=== PATIENT | female | born 1995 | race African-American/Black ===

== ENCOUNTER 2018-07-27 15:48 | Emergency (ER) | payer SELFPAY ==
[2018-07-27] MEDS ORDERED: Bicillin LA 1.2 MILLION UNITS/2 ML SYRINGE ONE (17:06)
[2018-07-27] MEDS ORDERED: Dexamethasone 4 mg/ml Vial ONE (17:06)
== END 2018-07-27 19:26 | disposition home or self-care (01) ==
LOC: ERS 15:48
DX: J02.0 Streptococcal pharyngitis (principal)
CPT/HCPCS: 87430; 96372; J0561; J1100

== ENCOUNTER 2019-11-21 18:02 | Emergency (ER) | payer SELFPAY ==
[2019-11-21 20:30] LABS: #Eosinphils 0.1 thou/uL (0.0-0.7); #Lymphocytes 2.1 thou/uL (1.20-3.40); #Monocytes 0.4 thou/uL (0.11-0.59); #Neutrophils 4.2 thou/uL (1.40-6.50); %Basophils 0.3 % (0.0-1.0); %Eosinophils 1.7 % (0.0-10.0); %Lymphocytes 30.2 % (21.0-51.0); %Monocytes 5.4 % (0.0-10.0); %Neutrophils 62.5 % (42.0-75.0); Hemoglobin 13.1 g/dL (12.0-16.0); Mean Corpuscular HGB CONC 33.9 g/dL (32.0-36.0); Mean Corpuscular Hemoglobin 29.3 pg (27.0-31.0); Mean Corpuscular Volume 86.4 fL (78.0-98.0); Mean Platelet Volume 7.1 fL (7.4-10.4); Platelet Count 275 thou/uL (130-400); Red Blood Cell (RBC) Count 4.48 mill/uL (4.20-5.40); White Blood Cell (WBC) Count 6.8 thou/uL (4.8-10.8)
[2019-11-21 20:51] LABS: ALT (SGPT) 18 U/L (8-55); AST (SGOT) 15 U/L (5-34); Albumin 4.3 g/dL (3.5-5.0); Alkaline Phosphatase 51 U/L (40-110); Anion Gap 11 mmol/L (10-20); BUN (Urea Nitrogen) 11 mg/dL (7.0-18.7); Bilirubin, Total 0.4 mg/dL (0.2-1.2); Calc. Creatinine Clearance 0 mL/min (70-130); Calcium 9.7 mg/dL (7.8-10.44); Carbon Dioxide 27 mmol/L (22-29); Chloride 105 mmol/L (98-107); Estimated GFR-MDRD Greater than 90; Globulin 3.1 g/dL (2.4-3.5); Glucose 86 mg/dL (70-105); Potassium 3.9 mmol/L (3.5-5.1); Protein, Total 7.4 g/dL (6.0-8.3); Sodium 139 mmol/L (136-145)
--- NOTE | 2019-11-21 21:12 | ULT ---
RIGHT LOWER EXTREMITY VENOUS DUPLEX EXAM: 11/21/19 INDICATIONS: Right lower extremity pain and edema. Deep veins of the right lower extremity evaluated with ultrasound and Doppler. Color Doppler, spectra l analysis and compression study is performed. Deep veins show normal blood flow and compression. No evidence of DVT. IMPRESSION: No evidence of right lower extremity DVT. POS: AGW
[2019-11-21] MEDS ORDERED: Ketorolac Tromethamine 30 MG/ML VIAL ONE (21:16)
--- NOTE | 2019-11-22 07:11 | RAD ---
RIGHT KNEE 4 VIEWS: Date: 11/21/2019 HISTORY: Right lower extremity pain and swelling. FINDINGS: Joint spaces appear normally maintained. No fracture. No acute osseous abnormality. No evidence of iggy int effusion. IMPRESSION: No acute abnormality. POS: AGW
== END 2019-11-21 22:35 | disposition home or self-care (01) ==
LOC: ERS 18:02
DX: M79.89 Other specified soft tissue disorders (principal); R60.0 Localized edema
CPT/HCPCS: 36415; 80053; 85025; 96372; J1885

== ENCOUNTER 2020-01-09 16:41 | Emergency (ER) | payer SELFPAY ==
[~2020-01-09 16:41] MED LIST: Iopamidol-370 76% 500 ML 1 ML ONE
[2020-01-09 17:56] LABS: Hemoglobin 12.2 g/dL (12.0-16.0); Mean Corpuscular HGB CONC 33.8 g/dL (32.0-36.0); Mean Corpuscular Hemoglobin 29.3 pg (27.0-31.0); Mean Corpuscular Volume 86.7 fL (78.0-98.0); Mean Platelet Volume 7.9 fL (7.4-10.4); Platelet Count 305 thou/uL (130-400); RBC Distribution Width 13.8 % (11.5-14.5); Red Blood Cell (RBC) Count 4.18 mill/uL (4.20-5.40); White Blood Cell (WBC) Count 6.1 thou/uL (4.8-10.8)
[2020-01-09 17:57] LABS: #Eosinphils 0.1 thou/uL (0.0-0.7); #Lymphocytes 1.8 thou/uL (1.20-3.40); #Monocytes 0.5 thou/uL (0.11-0.59); #Neutrophils 3.7 thou/uL (1.40-6.50); %Basophils 0.5 % (0.0-1.0); %Eosinophils 1.8 % (0.0-10.0); %Monocytes 8.4 % (0.0-10.0); %Neutrophils 60.3 % (42.0-75.0); ALT (SGPT) 22 U/L (8-55); AST (SGOT) 17 U/L (5-34); Albumin 4.2 g/dL (3.5-5.0); Alkaline Phosphatase 47 U/L (40-110); Anion Gap 13 mmol/L (10-20); BUN (Urea Nitrogen) 9 mg/dL (7.0-18.7); Bilirubin, Total 0.2 mg/dL (0.2-1.2); Calc. Creatinine Clearance 0 mL/min (70-130); Calcium 9.2 mg/dL (7.8-10.44); Carbon Dioxide 25 mmol/L (22-29); Chloride 106 mmol/L (98-107); Estimated GFR-MDRD Greater than 90; Globulin 3.1 g/dL (2.4-3.5); Glucose 114 mg/dL (70-105); Protein, Total 7.3 g/dL (6.0-8.3); Sodium 140 mmol/L (136-145)
[2020-01-09] MEDS ORDERED: Ketorolac Tromethamine 30 MG/ML VIAL ONE (18:34)
[2020-01-09] MEDS ORDERED: Ondansetron PF 4 MG/2 ML Vial ONE (18:34)
[2020-01-09 19:26] LABS: Bilirubin Negative (Negative); Blood, Urine Negative (Negative); Clarity Clear (Clear); Glucose, Urine (Dipstick) Normal (Negative); Ketone, Urine Negative (Negative); Leukocyte Negative Leu/uL (Negative); Nitrite Negative (Negative); Protein, Urine (Dipstick) Negative (Neg-Trace); Specific Gravity, Urine 1.021 (1.002-1.036)
--- NOTE | 2020-01-09 20:43 | CT ---
EXAM: CT ABDOMEN AND PELVIS HISTORY: Abdominal pain. COMPARISON: None. Procedure: Multiple contiguous axial images were obtained and a CT of the abdomen and pelvis with IV contrast. C oronal reformats were performed. FINDINGS: Lower Chest: within normal limits. Vessels: Normal caliber aorta Heart: Normal heart size Abdomen: Portal vein:Patent Gallbladder: No calcified gallstones. Normal caliber wall. Liver: within normal limits. Pancreas: within normal limits. Spleen: within normal limits. Adrenals: within normal limits. Kidneys: Symmetric enhancement. No obstructive uropathy. Peritoneum: No ascites, free air or free fluid. Bowel: Limited evaluation due to the lack of oral contrast administration. No evidence of bowel obstr uction. Ileocecal junction is unremarkable. Normal caliber appendix. Scattered fecal material in a nondistended, nondilated colon. Mesentery and Retroperitoneum: There are scattered mildly enlarged mesenteric lymph nodes. Representa tive enlarged lymph node measures 1.2 cm in maximum dimension. Correlate for mesenteric lymphadenitis. Abdominal Wall: within normal limits. Pelvis: Reproductive Organs: Uterus and left adnexa are unremarkable. In the right adnexa, there is a mixed a ttenuation mass fat, soft tissue and calcification. This right adnexal lesion measures 3.6 x 3.7 cm. Pelvis: No lymphadenopathy, free air or significant free fluid. Bladder: Decompressed, limiting evaluation Bones: within normal limits. IMPRESSION: 1. Dermoid involving the right ovary. There is soft tissue, fat and calcification present.
== END 2020-01-09 20:58 | disposition home or self-care (01) ==
LOC: ERS 16:41
DX: D27.0 Benign neoplasm of right ovary (principal); R10.9 Unspecified abdominal pain; I10 Essential (primary) hypertension; F41.9 Anxiety disorder, unspecified; F32.9 Major depressive disorder, single episode, unspecified
CPT/HCPCS: 74177; 80053; 81003; 84702; 85025; 96361; 96374; 96375; J1885; J2405; Q9967

== ENCOUNTER 2020-12-16 16:48 | Emergency (ER) | payer SELFPAY ==
[2020-12-16 18:37] LABS: #Lymphocytes 1.7 thou/uL (1.20-3.40); #Monocytes 0.4 thou/uL (0.11-0.59); #Neutrophils 2.7 thou/uL (1.40-6.50); %Basophils 0.2 % (0.0-1.0); %Eosinophils 0.5 % (0.0-10.0); %Lymphocytes 35.6 % (21.0-51.0); %Monocytes 7.8 % (0.0-10.0); %Neutrophils 55.8 % (42.0-75.0); Hemoglobin 12.7 g/dL (12.0-16.0); Mean Corpuscular HGB CONC 32.9 g/dL (32.0-36.0); Mean Corpuscular Hemoglobin 28.7 pg (27.0-31.0); Mean Corpuscular Volume 87.2 fL (78.0-98.0); Mean Platelet Volume 7.2 fL (7.4-10.4); Platelet Count 221 thou/uL (130-400); RBC Distribution Width 14.5 % (11.5-14.5); Red Blood Cell (RBC) Count 4.42 mill/uL (4.20-5.40); White Blood Cell (WBC) Count 4.8 thou/uL (4.8-10.8)
[2020-12-16 19:02] LABS: ALT (SGPT) 108 U/L (8-55); AST (SGOT) 179 U/L (5-34); Albumin 4.3 g/dL (3.5-5.0); Alkaline Phosphatase 43 U/L (40-110); Anion Gap 14 mmol/L (10-20); BUN (Urea Nitrogen) 8 mg/dL (7.0-18.7); Bilirubin, Total 0.5 mg/dL (0.2-1.2); Calc. Creatinine Clearance 0 mL/min (70-130); Calcium 9.5 mg/dL (7.8-10.44); Carbon Dioxide 26 mmol/L (22-29); Chloride 102 mmol/L (98-107); Globulin 3.5 g/dL (2.4-3.5); Glucose 117 mg/dL (70-105); Lipase 13 U/L (8-78); Potassium 3.5 mmol/L (3.5-5.1); Protein, Total 7.8 g/dL (6.0-8.3); Sodium 138 mmol/L (136-145)
== END 2020-12-17 00:01 | disposition left against medical advice (07) ==
LOC: ERS 16:48
DX: Z53.21 Procedure and treatment not carried out due to patient leaving prior to being seen by health care provider (principal)
CPT/HCPCS: 36415; 80053; 83690; 85025

== ENCOUNTER 2022-08-03 10:23 | Emergency (ER) | payer SELFPAY ==
[2022-08-03 11:12] LABS: Bilirubin Negative (Negative); Blood, Urine Negative (Negative); Clarity Clear (Clear); Glucose, Urine (Dipstick) Greater than 1000 mg/dL (Negative); Ketone, Urine Trace mg/dL (Negative); Leukocyte 500 Leu/uL (Negative); Nitrite Negative (Negative); Protein, Urine (Dipstick) Negative (Neg-Trace); Specific Gravity, Urine 1.028 (1.002-1.036); Urobilinogen Normal mg/dL (Less than 2); pH, Urine 5.5 (5.0-9.0)
[2022-08-03 11:14] LABS: Bacteria/HPF 1+ HPF (None Seen); RBC/HPF 0-3 HPF (0-3)
[2022-08-03 11:15] LABS: Pregnancy Test - Urine (BHCG) Negative (Negative); Pregu Control Background? CLEAR/WHITE (CLR/WHITE); Pregu Control Bar Appear? YES (CONTROL BAR); Specific Gravity 1.028 (1.002-1.036)
== END 2022-08-03 12:21 | disposition home or self-care (01) ==
LOC: ERS 10:23
DX: N39.0 Urinary tract infection, site not specified (principal); R73.9 Hyperglycemia, unspecified; I10 Essential (primary) hypertension
CPT/HCPCS: 36416; 81003; 81015; 81025; 99283

== ENCOUNTER 2023-06-11 15:28 | Emergency (ER) | payer SELFPAY ==
[2023-06-11 16:24] LABS: SARS-CoV-2 NAA Rapid Test Not Detected (NotDetected)
== END 2023-06-11 16:48 | disposition home or self-care (01) ==
LOC: ERS 15:28
DX: B34.9 Viral infection, unspecified (principal); E11.9 Type 2 diabetes mellitus without complications; I10 Essential (primary) hypertension; Z79.899 Other long term (current) drug therapy
CPT/HCPCS: 99283